=== PATIENT | female | born 1990 | race Caucasian/White ===

== ENCOUNTER 2017-02-09 02:30 | Emergency (ER) | payer SELFPAY ==
[2017-02-09] MEDS ORDERED: DICYCLOMINE HCL 10 MG CAPSULE ONE (03:31)
[2017-02-09] MEDS ORDERED: ONDANSETRON 4 MG ODT TAB ONE (03:31)
[2017-02-09] MEDS ORDERED: KETOROLAC TROMETHAMINE 60 MG/2 ML VIAL ONE (03:59)
[2017-02-09] MEDS ORDERED: METOCLOPRAMIDE HCL 5 MG/ML 2ML VIAL ONE (03:59)
== END 2017-02-09 04:31 | disposition home or self-care (01) ==
LOC: ED 02:30
DX: R10.9 Unspecified abdominal pain (principal); R11.10 Vomiting, unspecified